=== PATIENT | female | born 2000 | race African-American/Black ===

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

== ENCOUNTER 2022-12-07 10:11 | Emergency (ER) | payer MEDICAID, SELFPAY ==
[2022-12-07 10:13] VITALS: BP 105/70; PULSE 72; RESP 16; TEMP 36.1; O2SAT 99
--- NOTE | 2022-12-07 10:24 | EKG12_ITS ---
Test Reason : SYNCOPE Blood Pressure : / mmHG Vent. Rate : 070 BPM Atrial Rate : 070 BPM P-R Int : 164 ms QRS Dur : 078 ms QT Int : 350 ms P-R-T Axes : 014 065 021 degrees QTc Int : 378 ms Normal sinus rhythm Nonspecific T wave abnormality Abnormal ECG Confirmed by CAMILO VÁZQUEZ, ADY ([id number]), website/blog editor BARI MAGALLON ([id number]) on 12/08/2022 8:19:42 AM Referred By: REDDY Confirmed By:ADY PAGE MD
--- NOTE | 2022-12-07 10:27 | NURSING ---
NO OLD EKGS
--- NOTE | 2022-12-07 10:48 | ED.RN ---
pt. left without being seen
== END 2022-12-07 10:48 | disposition left against medical advice (07) ==
DX: R42 Dizziness and giddiness (principal)
CPT/HCPCS: 93005; 99282

== ENCOUNTER 2023-10-01 13:59 | Emergency (ER) | payer MEDICAID, SELFPAY ==
[2023-10-01 14:00] VITALS: BP 131/90; PULSE 118; RESP 14; TEMP 37.2; O2SAT 98; BMI 34.0
--- NOTE | 2023-10-01 14:22 | ED.RN ---
MD states not sitter needed until evaluated by social work.
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
--- NOTE | 2023-10-01 15:50 | EKG12_ITS ---
Test Reason : MHC Blood Pressure : / mmHG Vent. Rate : 105 BPM Atrial Rate : 105 BPM P-R Int : 168 ms QRS Dur : 082 ms QT Int : 322 ms P-R-T Axes : 061 077 009 degrees QTc Int : 425 ms Sinus tachycardia Nonspecific T wave abnormality Abnormal ECG Confirmed by Giovanny Ledesma ([id number]), editor sound CRISPIN RICCI ([id number]) on 10/04/2023 10:27:46 AM Referred By: Confirmed By:Giovanny Ledesma
[2023-10-01 16:23] LABS: Absolute Lymphocyte Count 2.08 X10^3/uL (0.83-4.51); Absolute Neutrophil Count 6.3 X10^3/uL (2.0-7.7); Basophil# 0.05 X10^3/uL; Basophil% 0.5 % (0-1); Eosinophil# 0.06 X10^3/uL; Eosinophils% 0.7 % (0-5); Hematocrit 40.3 % (37-47); Hemoglobin 13.5 g/dL (12.0-15.0); Lymphocyte # 2.08 X10^3/ul (0.83-4.51); Lymphocyte % 22.8 % (19-41); Mean Corp Hgb Conc 33.5 g/dL (32-36); Mean Corpuscular Hgb 29.7 pg (27.0-32.0); Mean Corpuscular Volume 88.8 fL (81-99); Mean Platelet Vol. 10.3 fl (6.2-12.0); Monocyte# 0.59 X10^3/uL; Monocyte% 6.5 % (0-10); NRBC Flagged by Analyzer 0 % (0-5); Neutrophil # 6.33 X10^3/uL (2.7-7.7); Neutrophil % 69.2 % (47-70); Platelet Count 324 K/mm3 (150-450); RBC Distribution Width CV 13.7 % (11.6-14.6); RBC Distribution Width SD 44.3 fl (35.1-43.9); Red Blood Count 4.54 M/mm3 (4.2-5.4); White Blood Count 9.1 K/mm3 (4.4-11.0)
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
[2023-10-01 16:35] LABS: ALB/GLOB Ratio 1.1 RATIO (0.9-2.4); AST(SGOT) 11 U/L (15-37); Alanine Aminotransfer ALT/SGPT 20 U/L (13-56); Albumin, Serum 4.2 g/dL (3.2-5.0); Alkaline Phosphatase 69 U/L (45-117); Anion Gap 4 (5-15); BUN 5 mg/dL (7-18); BUN/Creat Ratio 5.8 RATIO (10-20); Calcium,Total 9.8 mg/dL (8.5-10.1); Chloride 109 mmol/L (98-107); Creatinine, Serum 0.87 mg/dL (0.55-1.02); EST Glomerular Filtration Rate 87 mL/min (>60); Est Glom Filt Rate - Afr Amer 105 mL/min (>60); Estimated Creatinine Clearance 103.12 ml/min; Globulin 3.8 g/dL (2.2-4.2); Glucose 100 mg/dL (74-106); Potassium 3.5 mmol/L (3.5-5.1); Sodium Level 139 mmol/L (136-145)
[2023-10-01 16:53] LABS: Alcohol, Blood (Medical)-Serum < 3.0 mg/dL; Internal QC Validated? YES +Cl - CLEAR BKGD; Pregnancy, Serum, hCG Quali. NEGATIVE Negative
--- NOTE | 2023-10-01 17:02 | CM.ED ---
Social Work SW spoke with crisis and faxed patient info and SW assessment. Crisis reports they will be able to use funding for placement. SW will fax completed labs cande and follow up with process. Crisis reports they will touch base with client to explain placement. Jeannine Ortega SPEECH AND LANGUAGE CLINICIAN, DOCK GRADER
--- OUTSIDE RECORDS SUMMARY | 2023-10-01 17:20 | XMS RPT_ITS | CCD ---
Author Name Unknown Address [address] [place] [address] Organization [facility] Care Team Providers Care Finishing Manager Name Role Phone JING NICHOLSON DO Attending Unavailable PHYSICIAN, NONE Primary Care Unavailable Results Test Name Value Interpretation Reference Range Facil ity Encounters Encounter Date Encounter Type Care Provider Facility Start: 10-15-2022 End: 10-15-2022 Emergency department patient visit JING NICHOLSON DO Facility:B Payers Date Payer Category Payer Self-pay 2002 Unknown [id number] Summary Purpose Family History No Family History Records Found Advance Directives No Advanced Directives Records Found Additional Source Comments INFORMATION SOURCE (unrecogn ized section and content) FOR RECORDS PERTAINING TO PATIENTS WHO ARE OR HAVE BEEN ENROLLED IN A CHEMICAL DEPENDENCY/SUBSTANCEABUSE PROGRAM, SOME INFORMATION MAY BE OMITTED. This clinical summary was aggregated from multiple sources. Caution should be exercised in using it in the provision of clinical care. This summary normalizes information from multiple sources, and as a consequence, information in this document may materially change the coding, format and clinical context of patient data. In addition, data may be omitted in some cases. CLINICAL DECISIONS SHOULD BE BASED ON THE PRIMARY CLINICAL RECORDS. [facility]. provides no warranty or guarantee of the accuracy or completeness of information in this document.
--- NOTE | 2023-10-01 17:51 | ED.RN ---
called for meal tray
[2023-10-01] MEDS: Acetaminophen 500 MG Tablet 1000 MG PO (18:17)
[2023-10-01 18:20] VITALS: BP 124/93; PULSE 108; RESP 16; TEMP 35.8; O2SAT 98
[2023-10-01 19:47] LABS: Amphetamine Urine VISTA NEGATIVE (<1000 ng/mL); Barbiturate Urine VISTA NEGATIVE (< 200 ng/mL); Benzodiazepine Urine VISTA NEGATIVE (< 200 ng/mL); Cocaine Urine VISTA NEGATIVE (< 300 ng/mL); Ecstacy Urine VISTA POSITIVE (< 500 ng/mL); Methadone Urine VISTA NEGATIVE (< 300 ng/mL); PCP Urine VISTA NEGATIVE (< 25 ng/mL); THC Urine VISTA POSITIVE (< 50 ng/mL); Vista UDS pH Range 5
[2023-10-01] MEDS: LORazepam 1 MG Tablet PO (20:11)
[2023-10-01 20:28] VITALS: BP 134/77; PULSE 82; RESP 16; O2SAT 97
[2023-10-02 01:38] VITALS: BP 129/87; PULSE 62; RESP 15; O2SAT 98
[2023-10-02 05:26] VITALS: BP 129/87; PULSE 84; RESP 16; TEMP 35.8; O2SAT 99
== END 2023-10-02 05:41 ==
PROVIDERS: Emergency Provider Emergency Medicine; Visit Provider Emergency Medicine
DX: F32.2 Major depressive disorder, single episode, severe without psychotic features (principal); R45.851 Suicidal ideations; G47.00 Insomnia, unspecified; Z79.899 Other long term (current) drug therapy
CPT/HCPCS: 80053; 80307; 80320; 84703; 85025; 87426; 93005; 99285; G0480